=== PATIENT | female | born 2000 | race African-American/Black ===

== ENCOUNTER 2020-01-07 12:17 | Emergency (ER) | payer SELFPAY ==
[~2020-01-07] VITALS: Ht 154.9 cm; Wt 63.8 kg
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
[2020-01-07 14:01] LABS: RAPID INFLUENZA A Negative (Negative); RAPID INFLUENZA B Negative (Negative)
--- NOTE | 2020-01-07 14:56 | NUR ---
DISCHARGE INSTRUCTIONS GIVEN TO PATIENT WITH 3 PRESCRIPTIONS. RN DISCUSSES USE OF SPACER WITH INHALER, AND ZOFRAN. PT ABLE TO TEACH BACK ON ALL MEDICATIONS AND INSTRUCTIONS. PT AMBULATED OUT OF ED PER PEDIS.
[2020-01-07 14:57] VITALS: BP 117/86
== END 2020-01-07 15:01 | disposition home or self-care (01) ==
LOC: ED 13:17
DX: J98.01 Acute bronchospasm (principal); J06.9 Acute upper respiratory infection, unspecified; B97.89 Other viral agents as the cause of diseases classified elsewhere; R12 Heartburn; R19.7 Diarrhea, unspecified
CPT/HCPCS: 87400; 99283

== ENCOUNTER 2020-02-15 07:36 | Emergency (ER) | payer SELFPAY ==
[~2020-02-15] VITALS: Ht 154.9 cm; Wt 63.4 kg
[2020-02-15 08:18] LABS: BASOPHILS # (AUTO) 0.03 x10^3/uL (0-0.1); BASOPHILS % (AUTO) 0 % (0-1); EOSINOPHILS # (AUTO) 0.09 x10^3/uL (0-0.4); EOSINOPHILS % (AUTO) 1 % (1-7); LYMPHOCYTES % (AUTO) 27 % (22-44); MD NO; MEAN CORPUSCULAR HEMOGLOBIN 30.8 pg (27.0-34.8); MEAN CORPUSCULAR VOLUME 90.7 fL (80-100); MEAN PLATELET VOLUME 7.9 fL (7.4-10.4); MONOCYTES # (AUTO) 0.58 x10^3/uL (0.2-0.8); MONOCYTES % (AUTO) 7 % (2-9); NEUTROPHILS % (AUTO) 65 % (42-75); PLATELET COUNT 318 x10^3/uL (130-400); RED BLOOD COUNT 4.77 x10^6/uL (3.82-5.3); RED CELL DISTRIBUTION WIDTH 12.4 % (9.6-15.2)
[2020-02-15 08:20] LABS: CULTURE INDICATED? YES; MICROSCOPIC INDICATED
--- NOTE | 2020-02-15 08:25 | NUR ---
PT HAS CO ABDOMINAL PAIN W INCREASED FREQUENCY TO VOID, DENIES PAINFUL URINATION OR BURNING. NO N/V/D. PT PROVIDED URINE SAMPLE, CLOUDY IN COLOR.
[2020-02-15 08:27] LABS: ALBUMIN 3.4 g/dL (3.4-5.0); ANION GAP 4 mmol/L (5-15); CALCIUM 9.2 mg/dL (8.5-10.1); CHLORIDE 108 mmol/L (98-107); CREATININE 0.68 mg/dL (0.55-1.02)
--- NOTE | 2020-02-15 08:54 | NUR ---
Patient/Caregiver given discharge instructions and they have confirmed that they understand the instructions. Patient ambulatory with steady gait.
[2020-02-15 08:55] VITALS: BP 120/78
== END 2020-02-15 09:14 | disposition home or self-care (01) ==
LOC: ED 08:17
DX: R10.2 Pelvic and perineal pain (principal)
CPT/HCPCS: 36415; 76830; 80048; 81001; 82040; 84703; 85025; 87086; 99284